=== PATIENT | male | born 1965 | race American Indian/Alaskan Native ===

== ENCOUNTER 2020-05-01 14:33 | Emergency (ER) | payer OTHER ==
--- NOTE | 2020-05-01 15:14 | EDM.PDOC ---
ED HPI GENERAL MEDICAL PROBLEM - General Chief Complaint: Chest Pain Stated Complaint: DIARRHEA X 4 DAYS AND CHEST PAIN Time Seen by Provider: 05/01/20 15:12 Source of Information: Reports: Patient History Limitations: Reports: No Limitations - History of Present Illness INITIAL COMMENTS - FREE TEXT/NARRATIVE: 4-year-old male of [place] ancestry presents to the ED complaining of lower retrosternal chest pressure discomfort and epigastric abdominal pain associated with significant diarrhea i.e. 10-14 loose brown stools for the last 4 days. He reports falling off of a horse 10 days ago landing on outstretched left arm injuring his forearm and his chest was sore since that time. However it seems to be getting worse particularly along the lower ribs adjacent to his sternum. It hurts to cough sneeze or laugh. Denies cough or sputum production. No fever . He has had chills particular at bedtime and has tried to throw the covers off since he has been ill with the diarrhea. No blood noted in the diarrhea. He was suspicious that 1 day there was blood in his urine. Been taking clear fluids sips of Gatorade Powerade and water and passing his water fairly normally. Does not feel lightheaded dizzy or weak with standing. He has had 5 loose watery stools since midnight today. There is a possibility of foodborne illness eating taco from a restaurant predating the diarrhea. No one else in his family is ill. Onset: Sudden Onset Date: 04/28/20 Duration: Day(s):, Constant, Waxing/Waning Location: Reports: Chest (Pain adjacent to his lower sternum both sides for the last 5 or 6 days.), Abdomen (Epigastric abdominal pain associate with mild lower abdominal cramping pain and diarrhea.) Quality: Reports: Ache (The), Other ( in the chest. Mild cramping associate with diarrhea.) Severity: Moderate Improves with: Reports: None Worsens with: Reports: Eating (Eating makes things much worse.) Context: Reports: Other (Supple exposure to bad food eating out at a fast food restaurant.). Denies: Activity, Lifting, Sick Contact, Trauma Associated Symptoms: Reports: Chest Pain, Fever/Chills, Loss of Appetite. 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 Denies: Fever, Weight Loss HEENT: Reports: No Symptoms Respiratory: Reports: No Symptoms Cardiovascular: Reports: Chest Pain ([place]j to the sternum bilaterally lower sternum and epigastrium.). Denies: Blood Pressure Problem, Dyspnea on Exertion, Edema, Lightheadedness Endocrine: Reports: No Symptoms GI/Abdominal: Reports: Diarrhea (Significant diarrhea with 10-14 loose brown stools per day for the last 4 days.), Decreased Appetite : Reports: Other (Dark-colored urine.) Musculoskeletal: Reports: Other (Chest wall pain aggravated by coughing sneezing or laughing.) Skin: Reports: No Symptoms Neurological: Reports: No Symptoms Psychiatric: Reports: No Symptoms Hematologic/Lymphatic: Reports: No Symptoms Immunologic: Reports: No Symptoms ED EXAM, GENERAL - Physical Exam Exam: See Below Exam Limited By: No Limitations General Appearance: Alert, WD/WN, No Apparent Distress, Other (Temperature is 36.6. Heart rate is 80. Respiratory is 22 with O2 sats of 96% on room air BP is 1 3983) Eye Exam: Bilateral Eye: Normal Inspection (No scleral icterus or blepharal pallor.) Throat/Mouth: Other (Tongue is mildly coated and raspberry appearance) Head: Atraumatic, Normocephalic, Sinus Tenderness Neck: Supple, Non-Tender, Full Range of Motion. No: Carotid Bruit, Lymphadenopathy (L), Lymphadenopathy (R) Respiratory/Chest: No Respiratory Distress, Lungs Clear, Normal Breath Sounds, No Accessory Muscle Use, Chest Non-Tender Cardiovascular: Normal Peripheral Pulses, Regular Rate, Rhythm, No Edema, No Gallop, No Murmur, No Rub Peripheral Pulses: 3+: Carotid (L), Carotid (R), Posterior Tibial (L), Posterior Tibial (R), Dorsalis Pedis (L), Dorsalis Pedis (R) GI/Abdominal: Normal Bowel Sounds, Soft, Guarding, Tender (She is very tender to touch in the epigastrium of the abdomen.), Other (No abdominal wall hernia appreciated.). No: Rigid, Rebound (Francois in the epigastrium.) (Male) Exam: No Hernia Back Exam: Normal Inspection, Full Range of Motion. No: CVA Tenderness (L), CVA Tenderness (R) Extremities: Normal Inspection, Normal Range of Motion, Non-Tender, No Pedal Edema, Normal Capillary Refill Neurological: Alert, Oriented, CN II-XII Intact, Normal Cognition Psychiatric: Normal Affect, Normal Mood Skin Exam: Warm, Dry, Intact, Normal Color, No Rash EKG INTERPRETATION EKG Date: 05/01/20 Time: 15:07 Rhythm: NSR Rate (Beats/Min): 82 [place]: LAD-Left Cro[place]on Deviation (Mild left axis deviation of -14 degrees) P-Wave: Enlarged (Left atrial hypertrophy pattern) QRS: Other (There is a QRS prime wave in V1 considered normal variant. There appears to be an incomplete right sided heart block pattern. There is early R wave transition consider right ventricular appear to be versus septal hypertrophy pattern) ST-T: Normal QT: Normal EKG Interpretation Comments: Abnormal ECG no signs of ischemia. Course - Vital Signs Last Recorded V/S: Last Vital Signs Temp 36.6 C 05/01/20 15:05 Pulse 68 05/01/20 16:50 Resp 22 H 05/01/20 15:05 BP 112/75 05/01/20 16:50 Pulse Ox 96 05/01/20 15:05 - Orders/Labs/Meds Orders: Active Orders 24 hr Category Date Time Status EKG Documentation Completion [RC] STAT Care 05/01/20 15:15 Active Chest wo Cont [CT] Stat Exams 05/01/20 15:30 Taken [facility] CULT SHIGA TOX CAMPY AG [MREF] Stat Lab 08/08/20 15:29 Ordered Labs: Laboratory Tests 05/01/20 05/01/20 05/01/20 Range/Units 15:05 15:05 15:05 WBC 6.09 (4.23-9.07) K/mm3 RBC 5.27 (4.63-6.08) M/mm3 Hgb 15.6 (13.7-17.5) gm/dl Hct 46.3 (40.1-51.0) % MCV 87.9 (79.0-92.2) fl MCH 29.6 (25.7-32.2) pg MCHC 33.7 (32.2-35.5) g/dl RDW Std Deviation 45.0 H (35.1-43.9) fL Plt Count 308 (163-337) K/mm3 MPV 9.1 L (9.4-12.3) fl Neut % (Auto) 62.8 (34.0-67.9) % Lymph % (Auto) 19.7 L (21.8-53.1) % Sampson % (Auto) 14.4 H (5.3-12.2) % Eos % (Auto) 1.5 (0.8-7.0) Baso % (Auto) 1.1 (0.1-1.2) % Neut # (Auto) 3.82 (1.78-5.38) K/mm3 Lymph # (Auto) 1.20 L (1.32-3.57) K/mm3 Sampson # (Auto) 0.88 H (0.30-0.82) K/mm3 Eos # (Auto) 0.09 (0.04-0.54) K/mm3 Baso # (Auto) 0.07 (0.01-0.08) K/mm3 PT 11.5 (9.7-12.0) SECONDS INR 1.08 APTT 30 (22-31) SECONDS D-Dimer, Quantitative (0.19-0.50) mg/L Sodium 134 L (136-145) mEq/L Potassium 3.0 L (3.5-5.1) mEq/L Chloride 98 (98-107) mEq/L Carbon Dioxide 30 (21-32) mEq/L Anion Gap 9.0 (5-15) BUN 15 (7-18) mg/dL Creatinine 1.3 (0.7-1.3) mg/dL Est Cr Clr Drug Dosing 66.29 mL/min Estimated GFR (MDRD) 57 (>60) mL/min BUN/Creatinine Ratio 11.5 L (14-18) Glucose 94 (74-106) mg/dL Calcium 8.5 (8.5-10.1) mg/dL Magnesium 2.0 (1.8-2.4) mg/dl Total Bilirubin 0.8 (0.2-1.0) mg/dL AST 23 (15-37) U/L ALT 39 (16-63) U/L Alkaline Phosphatase 83 (46-116) U/L Troponin I < 0.017 (0.00-0.056) ng/mL C-Reactive Protein 13.3 H* (<1.0) mg/dL Total Protein 8.2 (6.4-8.2) g/dl Albumin 3.2 L (3.4-5.0) g/dl Globulin 5.0 gm/dL Albumin/Globulin Ratio 0.6 L (1-2) Lipase 107 (73-393) U/L SARS Virus RNA (PCR) (NEGATIVE) 05/01/20 05/01/20 Range/Units 15:05 15:50 WBC (4.23-9.07) K/mm3 RBC (4.63-6.08) M/mm3 Hgb (13.7-17.5) gm/dl Hct (40.1-51.0) % MCV (79.0-92.2) fl MCH (25.7-32.2) pg MCHC (32.2-35.5) g/dl RDW Std Deviation (35.1-43.9) fL Plt Count (163-337) K/mm3 MPV (9.4-12.3) fl Neut % (Auto) (34.0-67.9) % Lymph % (Auto) (21.8-53.1) % Sampson % (Auto) (5.3-12.2) % Eos % (Auto) (0.8-7.0) Baso % (Auto) (0.1-1.2) % Neut # (Auto) (1.78-5.38) K/mm3 Lymph # (Auto) (1.32-3.57) K/mm3 Sampson # (Auto) (0.30-0.82) K/mm3 Eos # (Auto) (0.04-0.54) K/mm3 Baso # (Auto) (0.01-0.08) K/mm3 PT (9.7-12.0) SECONDS INR APTT (22-31) SECONDS D-Dimer, Quantitative 0.90 H (0.19-0.50) mg/L Sodium (136-145) mEq/L Potassium (3.5-5.1) mEq/L Chloride (98-107) mEq/L Carbon Dioxide (21-32) mEq/L Anion Gap (5-15) BUN (7-18) mg/dL Creatinine (0.7-1.3) mg/dL Est Cr Clr Drug Dosing mL/min Estimated GFR (MDRD) (>60) mL/min BUN/Creatinine Ratio (14-18) Glucose (74-106) mg/dL Calcium (8.5-10.1) mg/dL Magnesium (1.8-2.4) mg/dl Total Bilirubin (0.2-1.0) mg/dL AST (15-37) U/L ALT (16-63) U/L Alkaline Phosphatase (46-116) U/L Troponin I (0.00-0.056) ng/mL C-Reactive Protein (<1.0) mg/dL Total Protein (6.4-8.2) g/dl Albumin (3.4-5.0) g/dl Globulin gm/dL Albumin/Globulin Ratio (1-2) Lipase (73-393) U/L SARS Virus RNA (PCR) Negative (NEGATIVE) Meds: Medications Discontinued Medications Generic Name Dose Route Start Last Admin Trade Name Freq PRN Reason Stop Dose Admin Dextrose/Lactated Ringer's 1,000 mls @ 999 mls/hr 05/01/20 15:30 05/01/20 15:38 Dextrose 5%-Lactated Ringers IV 999 mls/hr ASDIRECTED NIMCO Administration Pantoprazole Sodium 80 mg 05/01/20 16:33 05/01/20 16:47 Protonix Iv IVPUSH 05/01/20 16:34 80 mg BOLUS ONE Administration - Radiology Interpretation Free Text/Narrative:: 54-year-old male presents to the ED with a 4-day history of significant diarrhea anywhere between 10 and 16 loose watery brown stools per day. Also significant epigastric abdominal pain lower retrosternal chest pressure discomfort. It hurts to cough sneeze or laugh. He is appreciated the symptoms since he fell off a horse 10 days ago landing on outstretched left forearm which he injured. No fractures however. He denies cough or sputum production. He is got nighttime chills. He has been up at night to have diarrhea stools. There is a possibility of bad food exposure eating a taco from a fast food restaurant predating the diarrhea stool development. No one else in his family is ill. Exam reveals clear lung barron. Afebrile. Tongue is slightly dry and coated. Benign abdominal examination other than significant discomfort on palpation of the epigastrium. Plan IV D5 LR at open. Routine labs to be collected. Stool sample for culture and sensitivity and white blood cells if one becomes available. He will have CT of his chest so that I can visualize his sternum and anterior ribs better. - Re-Assessments/Exams Free Text/Narrative Re-Assessment/Exam: 05/01/20 16:19 CT of the chest reveals a fracture of the left third rib of unclear antique witty. No other rib fractures were identified. There is no pneumothorax or hemothorax. Minimal basal atelectasis bilaterally. Cardiac silhouette is within normal limits. Appreciated above the diaphragm. Liver reveals a lesion in the right lower lobe likely a hemangioma. Gallbladder is within normal limits showing no calcified gallstones. Pancreas is normal. Adrenal glands appear normal. Stomach contains only small quantity of food. Bowel and gas pattern are normal. Both kidneys are within normal limits and no signs of obstruction of the ureters identified. There is no evidence of pulmonary embolism on CT of the chest. 05/01/20 16:22 White blood cell count is normal at 6.09. Differential auto differential shows 62.8% neutrophils. Hemoglobin is 15.6 with hematocrit of 46.3. Platelet count is 308,000. PT is 11.5 with an INR of 1.08. PTT is 30 with a d-dimer is slightly elevated at 0.90. This is felt to be related to his recent trauma from falling off a horse. Sodium 134 with a potassium of 3.0 which is low. Chloride is 98 with a bicarb of 30. Anion gap is 9.0. BUN is 15 creatinine is slightly elevated at 1.3. GFR remains 57. Glucose 94 with a calcium of 8.5 magnesium normal at 2.0. Liver function normal. Troponin I is less than 0.017. C-reactive protein is markedly elevated at 13.3 suggesting an underlying bacterial illness. Total protein is 8.2 with an albumin fraction of 3.2. Lipase is normal at 107. I have discussed the findings with the patient. Clinically he has a bacterial induced enteritis. I am going to place him on Cipro 500 mg twice daily for the next 6 days to try and eradicate this. Bentyl 20 mg every 6 hours as needed for relief of epigastric abdominal pain and/or diarrhea. Pepcid 20 mg twice daily for the next 5 days until his stomach inflammation settles down. He is doing okay with the rib fracture he holds onto his chest when he gets out of bed etc. this will heal over time. He is to remain on a clear fluid diet primarily Gatorade Powerade sipped until stools are formed back up which will take at least 48 hours of antibiotic therapy. He was not able to produce a stool in the ED as he went just before coming into the ED. He will follow-up with personal care provider if not markedly improved in 72 to 96 hours time Departure - Departure Time of Disposition: 16:35 Disposition: Home, Self-Care 01 Reason for Transfer *Q: Other Condition: Fair Clinical Impression: Gastroenteritis, Non-cardiac chest pain Closed rib fracture Qualifiers: Encounter type: initial encounter Rib fracture type: single rib Laterality: left Qualified Code(s): S22.32XA - Fracture of one rib, left side, initial encounter for closed fracture Diarrhea Qualifiers: Diarrhea type: infectious Qualified Code(s): A09 - Infectious gastroenteritis and colitis, unspecified Prescriptions: Dicyclomine [Bentyl] 20 mg PO Q6H PRN #10 tablet PRN Reason: Abdominal cramps/diarrhea Ciprofloxacin HCl [Cipro] 500 mg PO BID #12 tablet Famotidine [Pepcid AC] 20 mg PO BID #20 tablet Instructions: Rib Fracture, Food Choices to Help Relieve Diarrhea, Adult Referrals: PCP,None [Primary Care Provider] - Forms: ED Department Discharge Additional Instructions: Evaluation in the emergency room today in regards to 2 problems. One is chest wall pain since fall from a horse several days ago. CT of the chest reveals a fracture that is undisplaced of the left third rib lateral chest wall. This wi ll take about 6 weeks to heal completely but usually hurts the worst for the first 10 days and gradually improved by the third week. There is no underlying injury to the lung or heart. Also history of significant discomfort in the epigastrium or pit of the stomach which I believe is due to inflammation from current foodborne illness causing diarrhea. Suggest Pepcid 20 mg in the morning and bedtime for the next 5 days to help the stomach lining heal. Diet should be clear fluids such as Gatorade or Powerade 5 to 6 ounces sipped per hour to prevent dehydration. When hungry try soda crackers. May then advance to jam on white bread etc. After this may advance to turkey rice or chicken noodle soup etc. You should avoid all dairy products and no apple juice or grape juice until stools are formed back up. No coffee or tea either. Due to the bacterial etiology of the diarrhea likely from bad food suggest use of antibiotic Cipro 500 mg twice daily for the next 6 days to clear up infectious diarrhea. Back marked improvement over the next 72 to 96 hours. If not you should be re- evaluated. Use Bentyl 20 mg by mouth every 6 hours for relief of epigastric abdominal pain and or after a diarrhea stool. Labs do not show any signs of heart related illness. Sepsis Event Note (ED) - Evaluation Sepsis Screening Result: No Definite Risk - Focused Exam Vital Signs: Vital Signs Temp Pulse Resp BP Pulse Ox 05/01/20 16:50 68 112/75 05/01/20 15:05 36.6 C 80 22 H 139/83 96 - My Orders Last 24 Hours: My Active Orders 05/01/20 15:15 EKG Documentation Completion [RC] STAT 05/01/20 15:29 [facility] CULT SHIGA TOX CAMPY AG [MREF] Stat 05/01/20 15:30 Chest wo Cont [CT] Stat - Assessment/Plan Last 24 Hours: My Active Orders 05/01/20 15:15 EKG Documentation Completion [RC] STAT 05/01/20 15:29 [facility] CULT SHIGA TOX CAMPY AG [MREF] Stat 05/01/20 15:30 Chest wo Cont [CT] Stat
[2020-05-01] MEDS ORDERED: Dextrose 5%-Lactated Ringers 1,000 ML IV SCH (15:30)
[2020-05-01] MEDS ORDERED: Pantoprazole 40 MG Vial IVPUSH ONE (16:33)
--- NOTE | 2020-05-02 13:19 | CT ---
CT chest Technique: Multiple axial sections were obtained from above the lung apices inferiorly through the lung bases. Intravenous contrast was not utilized. Findings: Aorta shows no aneurysm. No mediastinal adenopathy or hilar abnormalities are seen. No pericardial thickening is seen. Fatty infiltration is seen within the liver. No acute upper abdominal abnormality is appreciated on this noncontrast exam. Scattered linear areas of increased density compatible with atelectasis and possible linear scarring. No acute parenchymal change is seen. No pleural effusions are seen. No pneumothorax is appreciated. Slight degenerative change scattered within the spine which includes posterior spurring. No acute osseous finding is appreciated. Impression: 1. Findings as noted above. 2. Nothing acute is appreciated. Diagnostic code #2 This report was dictated in MDT I agree with preliminary report from [facility], finalized on 05/01/20, 5:28 PM Central Daylight Time
== END 2020-05-01 16:54 | disposition home or self-care (01) ==
LOC: JD.ED 14:33
DX: S22.32XA Fracture of one rib, left side, initial encounter for closed fracture (principal); K52.9 Noninfective gastroenteritis and colitis, unspecified; Z79.2 Long term (current) use of antibiotics; Z20.828 Contact with and (suspected) exposure to other viral communicable diseases; Z79.899 Other long term (current) drug therapy; V80.010A Animal-rider injured by fall from or being thrown from horse in noncollision accident, initial encounter
CPT/HCPCS: 36415; 71250; 80053; 83690; 83735; 84484; 85025; 85379; 85610; 85730; 86140; 87635; 93005; 96361; 96374; 99284; C9113; J7121; 93010; U0002